=== PATIENT | female | born 2000 | race Two or more races ===

== ENCOUNTER 2024-11-01 16:25 | Emergency (ER) | payer MEDICAID, SELFPAY ==
[2024-11-01 16:28] VITALS: PULSE 90; RESP 18; BMI 29.9
[2024-11-01 16:52] VITALS: BP 123/74; PULSE 68; RESP 18; TEMP 36.6; O2SAT 99
--- NOTE | 2024-11-01 17:02 | PD.EDADULT ---
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 She drank down with and is under a lot of stress. Subsequently the patient became lightheaded, stating that she was not feeling right. Coworkers insisted that she leave the classroom and follow-up with care. At the time of the exam the patient is awake alert oriented complaining of a mild headache, which she states, is as a result of taking her antiseizure medicines on a daily basis. Patient denies fever altered mental status nausea vomiting diarrhea chest pain blurred vision seeing spots or anxiety at this time. Patient has an appointment in 4 days with her neurologist in [place] regarding her medications and this should also include antianxiety medications. Related Data Home Medications ?Medication ?Instructions ?Recorded ?Confirmed oxcarbazepine 600 mg tablet 600 tab PO BID 03/02/22 09/10/22 [id number] 1 mg 1 tab PO QDAY 09/10/22 09/10/22 tablet Previous Rx's ?Medication ?Instructions ?Recorded ibuprofen 600 mg tablet 600 mg PO Q6H PRN pain #20 tabs 09/12/22 Allergies Allergy/AdvReac Type Severity Reaction Status Date / Time No Known Allergies Allergy Verified 01/08/23 15:41 Review of Systems Review of Systems Narrative Review of Systems: GEN: No fever, no chills, no weight loss EYES: No discharge, no visual changes, no pain HEENT: No ear pain, no congestion, no sore throat PULM: No shortness of breath, no cough, no congestion CV: No chest pain, no dyspnea on exertion, no palpitations GI: No nausea, no vomiting, no diarrhea, no pain, no constipation : No frequency, no urgency, no dysuria MUSC/SKEL: No joint pain, no back pain SKIN: No rash PSYCH: No hallucinations, no depression HEME/LYMPH: No easy bleeding or bruising tendencies NEURO: No weakness, no headache Past Medical History Past Medical History NEUROLOGIC: Positive Neurological Disorders and Seizures CARDIAC: Negative Cardiac Disorders, Myocardial Infarction, Cardiac Arrhythmia, Atrial Fibrillation, Angina, Heart Murmur, Coronary Artery Disease, Atherosclerotic Heart Disease, Peripheral Vascular Disease, Hypercholesterolemia, Aneurysm, Congestive Heart Failure, Congenital Heart Disease, Valvular Heart Disease, Rheumatic Fever, Cardiomyopathy, Edema, Pericarditis, Cellulitis, Deep Vein Thrombosis, Hypertension, Hypotension or Varicose Veins RESPIRATORY: Negative Chronic Obstructive Pulmonary Disease (COPD) GASTROINTESTINAL: Negative Gastrointestinal Disorders or Hepatitis GENITOURINARY: Negative Genitourinary Disorders or Renal Disease REPRODUCTIVE: Negative Pelvic Inflammatory Disease or Previous Pregnancies MUSCULOSKELETAL: Negative Musculoskeletal Disorders ENDOCRINE: Negative Endocrine Disorders, Diabetes Mellitus Type 1, Diabetes Mellitus Type 2, Drumright's Syndrome, Robson's Disease or Adrenal Disease HEMATOLOGIC: Negative Blood Disorders OTHER HISTORY: Negative Hospitalization, Autoimmune Disease, Down Syndrome, Developmental Delay, Shingles, Falls, Blood Transfusions, Blood Transfusion Reaction, Anesthesia Reactions, Organ Transplant, Chemotherapy, Radiation Therapy, Hyperbaric Therapy, MRSA, VRSA, Vancomycin-Resistant Enterococci, Human Immunodeficiency Virus (HIV), Chicken Pox, Measles, Mumps, Rubella (Japanese Measles), Pertussis, Clostridium Difficile or Cancer Family History FAMILY HISTORY: Negative Family Psychiatric Problems, Family Respiratory Disorders, Family Cardiac Disorders, Family Gastrointestinal Problems, Family Cancer, Family Surgery or Family Anesthesia Reaction Surgical History SURGICAL: Positive Tonsillectomy; Negative Cardiac Surgery, Pacemaker, Endocrine Surgery, Ear Surgery, Abdominal Surgery, Nephrectomy, Joint Replacement, Neurologic Surgery, Mastectomy or Organ Transplant Social History SMOKING STATUS: Never smoker SUBSTANCE USE: marijuana (occasionally uses) ED Exam Narrative Physical exam: [General: Anxious, not in any acute distress Head normocephalic HEENT: Within acceptable limits Neck is supple nontender Chest equal chest rise nontender to palpation Respiratory: Clear to auscultation no wheezes crackles or rubs CV: Rate rhythm is regular no murmurs rubs or clicks Abdomen is soft nontender no masses positive bowel sounds all 4 quadrants Back: No CVA tenderness no spinous process tenderness from cervical spine thoracic and lumbar spine Skin: Intact no petechiae rash induration ulceration or crepitus Extremities: Moving all extremity against resistance cap refill less than 2 seconds neurosensory intact Neuro: Awake alert oriented x3 Glascow coma 15 no focal deficits] Course Quality Measures none Orders Category Date Time Status Acetaminophen Tab [Tylenol Tab] Med 11/01/24 17:02 Once 650 mg PO X1 ONE Vital Signs Vital signs: Vital Signs Temperature 98 F 11/01/24 16:52 Pulse Rate 68 11/01/24 16:52 Respiratory Rate 18 11/01/24 16:52 Blood Pressure 123/74 11/01/24 16:52 Pulse Oximetry (%) 99 11/01/24 16:52 Oxygen Delivery Method Room Air 11/01/24 16:52 [facility] Patient data External records reviewed:: [facility] previous records Clinical information provided by:: patient Social determinants that could affect healthcare access:: none Patient has the following chronic illnesses:: Seizure disorder, brain tumor . 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 Symptoms of all spontaneously resolved. Patient be treated for headache as per her request, I have deferred any antianxiety medications to her neurologist to make sure there is no interaction with the medication she is already on. Medications Medications considered but not ordered:: None Medication administrations:: None Consultations Consultation(s) initiated? (list below): No Diagnosis Differential Diagnosis ED Complaint MDM: Anxiety pseudoseizure seizure disorder Most likely diagnosis given after review of the tests above:: Panic attack Admission Indicated Admission indicated?: not indicated Explain why admission is indicated or not indicated:: Stable for discharge Admission Request Was there a request for admission?: No Disposition Plan Disposition Plan: Discharge Discharge Attestation Discharge Attestation: The patient and all family members were given an opportunity to ask questions and understood the discharge instructions. Discharge instructions specifically effects, indications for sooner follow up or return to the emergency department, and the expected course of current diagnosis. Patient condition: Stable Medical Decision Making Differential Diagnosis Differential Diagnosis: Anxiety pseudoseizure seizure disorder Discharge Plan Plan Patient Disposition: HOME (Self Care) Patient condition on transfer: Stable Prescriptions/Referrals Prescriptions/Med Rec: No Action oxcarbazepine 600 mg tablet 600 tab PO BID [id number] 1 mg Tablet 1 tab PO QDAY ibuprofen 600 mg tablet 600 mg PO Q6H PRN (Reason: pain) Qty: 20 0RF Problem List Clinical Impression: Anxiety attack Patient/Caregiver Discharge Instructions Other Activity Instructions:: Follow-up with your neurologist, consider antianxiety medication make sure it does not interact with your seizure medications. If there is a worsening of symptoms return the emergency room immediately for further evaluation. Education Materials: ED Anxiety Reaction Print Language: Australian Stand Alone Forms: Malissa Award Info., Work/School Release, Patient Portal Info Letter PA/TONI Supervising Physician PA/CLINICAL RESEARCH COORDINATOR Supervising Physician: Jorje Davila ENP
[2024-11-01] MEDS: ACETAMINOPHEN 325 MG TABLET 650 MG PO (17:11)
== END 2024-11-01 17:39 | disposition home or self-care (01) ==
PROVIDERS: Emergency Provider Emergency Medicine
DX: F41.9 Anxiety disorder, unspecified (principal)
CPT/HCPCS: 99282; A9270